=== PATIENT | female | born 1995 ===

== ENCOUNTER 2019-07-21 12:32 | Inpatient (IN) | payer MEDICAID ==
[2019-07-21] MEDS ORDERED: MINERAL OIL 30 ML ORAL LIQD PO PRN (14:48)
[2019-07-21] MEDS ORDERED: ePHEDrine SULFATE 50 MG/1 ML INJ IV PRN ×2 (14:48→20:36)
[2019-07-21] MEDS ORDERED: TERBUTALINE 1 MG/1 ML INJ IVP PRN (14:48)
[2019-07-21] MEDS ORDERED: LIDOCAINE (2%) 20 MG/1 ML VIAL 20 ML MDV INFILTRATI ONE ×2 (14:48→17:20)
[2019-07-21] MEDS ORDERED: fentaNYL 100 MCG/2 ML INJ IV PRN (14:48)
[2019-07-21] MEDS ORDERED: AMPICILLIN/NS 2 GM/100 ML 2 GM/100 ML BAG IV ONE (14:48)
[2019-07-21] MEDS ORDERED: TERBUTALINE 1 MG/1 ML INJ SUB-Q PRN (14:48)
[2019-07-21] MEDS ORDERED: OXYTOCIN 20 UNIT/1000ML DRIP 20 UNITS/1,000 ML BAG IV SCH (15:00)
[2019-07-21] MEDS ORDERED: OXYTOCIN DRIP 30 UNITS/500 ML BAG IV SCH ×3 (15:00→18:00)
[2019-07-21] MEDS ORDERED: LACTATED RINGERS 1,000 ML IV SCH ×2 (15:00→18:00)
[2019-07-21 15:38] LABS: Hemoglobin 9.3 gm/dl (10.1-14.3); Mean Corpuscular HGB Conc 31 % (30-34); Platelet Count 221 K/mm3 (140-440); Red Blood Count 4.46 M/mm3 (3.65-5.03); Red Cell Distribution Width 19.1 % (13.2-15.2)
[2019-07-21 15:49] LABS: Mean Corpuscular Volume 67 fl (79-97)
[2019-07-21] MEDS ORDERED: ONDANSETRON 4 MG/2 ML INJ IV PRN (17:20)
[2019-07-21] MEDS: BUTORPHANOL 2 MG/1 ML INJ IV PRN ×2 (17:22→19:31)
--- NOTE | 2019-07-21 17:26 | History and Physical Report ---
History of Present Illness Date of examination: 07/21/19 Date of admission: 07/21/19 15:21 Chief complaint: Intense Labor Pains History of present illness: Early entry to care, Co-managed with [facility] due to a Bicornuate uterus, LGA, Polyhyramnios, maternal obesity, and echogenic intracardiac focus. Past History Past Medical History: no pertinent history Past Surgical History: no surgical history Family/Genetic History: none Social history: no significant social history, single - Obstetrical History Expected Date of Delivery: 07/31/19 Actual Gestation: 38 Week(s) 4 Day(s) : 1 Medications and Allergies Allergies Allergy/AdvReac Type Severity Reaction Status Date / Time No Known Allergies Allergy Unverified 07/21/19 13:30 Home Medications Medication Instructions Recorded Confirmed Last Taken Type No Known Home Medications [No 07/21/19 07/21/19 Unknown History Reported Home Medications] Active Meds: Active Medications Butorphanol Tartrate (Stadol) 2 mg IV Q2H PRN PRN Reason: Pain , Severe (7-10) Ephedrine Sulfate (Ephedrine Sulfate) 10 mg IV Q2M PRN PRN Reason: Hypotension Fentanyl (Sublimaze) 100 mcg IV Q2H PRN PRN Reason: Pain,Severe (7-10) LABOR PAIN Oxytocin/Sodium Chloride (Pitocin/Ns 20 Unit/1000ml Drip) 20 units in 1,000 mls @ 125 mls/hr IV DIRECT ANDREA Oxytocin/Sodium Chloride (Pitocin/Ns 30 Unit/500ml) 30 units in 500 mls @ 1 mls/hr IV TITR ANDREA; Protocol Oxytocin/Sodium Chloride (Pitocin/Ns 30 Unit/500ml) 30 units in 500 mls @ 2 mls/hr IV TITR ANDREA; Protocol Stop: 07/21/19 23:59 Lactated Ringer's (Lactated Ringers) 1,000 mls @ 125 mls/hr IV DIRECT ANDREA Oxytocin/Sodium Chloride (Pitocin/Ns 30 Unit/500ml) 30 units in 500 mls @ 1 mls/hr IV TITR ANDREA; Protocol Lactated Ringer's (Lactated Ringers) 1,000 mls @ 125 mls/hr IV DIRECT ANDREA Lidocaine (Xylocaine 2%) 20 ml INFILTRATI ONCE ONE Stop: 07/21/19 17:21 Mineral Oil (Mineral Oil) 30 ml PO QHS PRN PRN Reason: Constipation Ondansetron HCl (Zofran) 4 mg IV Q8H PRN PRN Reason: Nausea And Vomiting Terbutaline Sulfate (Brethine) 0.25 mg SUB-Q ONCE PRN PRN Reason: Hyperstimulation/Hypertonicity Terbutaline Sulfate (Brethine) 0.25 mg IVP ONCE PRN PRN Reason: Hyperstimulation/Hypertonicity Review of Systems All systems: negative - Vital Signs Vital signs: Vital Signs Temp Pulse Resp BP 99.1 F 75 16 130/75 07/21/19 13:17 07/21/19 13:17 07/21/19 13:17 07/21/19 13:17 Temp Pulse Resp BP Pulse Ox 99.1 F 86 16 132/84 07/21/19 13:17 07/21/19 15:18 07/21/19 13:17 07/21/19 15:18 - Physical Exam Breasts: Positive: normal Cardiovascular: Regular rate Lungs: Positive: Clear to auscultation, Normal air movement Abdomen: Positive: normal appearance, soft, normal bowel sounds Genitourinary (Female): Positive: normal external genitalia, normal perenium Uterus: Positive: enlarged Extremities: Positive: edema (+1) - Obstetrical FHR: category 1 Uterine Contraction Monitor Mode: External Cervical Dilatation: 4 (SROM of a large amount of clear fluid at 1700) Cervical Effacement Percentage: 70 station: -2 Uterine Contraction Frequency (min): 1-2 Uterine Contraction Pattern: Regular Uterine Tone Measurement Phase: Resting Uterine Contraction Intensity: Moderate Results Result Diagrams: 07/21/19 14:25 Abnormal lab results 07/21/19 Range/Units 14:25 WBC 16.9 H (4.5-11.0) K/mm3 Hgb 9.3 L (10.1-14.3) gm/dl Hct 30.0 L (30.3-42.9) % MCV 67 L (79-97) fl MCH 21 L (28-32) pg RDW 19.1 H (13.2-15.2) % All other labs normal. Assessment and Plan A: IUP @ 38 4/7 Weeks Category I Tracing SROM GBS Positive P: Admit to L&D Per Routine Orders GBS Prophylaxis IV Pain Control Patient Care Transferred to Dr. Bolivar
[2019-07-21] MEDS ORDERED: fentaNYL-BUPIV 2 MCG/ML-0.125% 200 MCG/100 ML BAG EPIDURAL ONE (20:19)
[2019-07-21] MEDS ORDERED: DEXMEDETOMIDINE 200 MCG/2 ML VIAL IV ONE (20:19)
[2019-07-21] MEDS ORDERED: NALOXONE 2 MG/2 ML INJ IV PRN (20:36)
--- NOTE | 2019-07-21 20:37 | Anesthesia Consultation ---
Anesthesia Consult and Med Hx Date of service: 07/21/19 - Airway Anesthetic Teeth Evaluation: Good ROM Head & Neck: Adequate Mental/Hyoid Distance: Adequate Mallampati Class: Class II Intubation Access Assessment: Probably Good - Pulmonary Exam CTA: Yes - Cardiac Exam Cardiac Exam: RRR - Pre-Operative Health Status ASA Pre-Surgery Classification: ASA2 Proposed Anesthetic Plan: Epidural - Pulmonary Hx Asthma: No COPD: No Hx Pneumonia: No - Cardiovascular System Hx Hypertension: No - Central Nervous System Hx Seizures: No Hx Psychiatric Problems: No - Endocrine Hx Renal Disease: No Hx End Stage Renal Disease: No Hx Hypothyroidism: No Hx Hyperthyroidism: No - Hematic Hx Anemia: No Hx Sickle Cell Disease: No - Other Systems Hx Alcohol Use: No
--- NOTE | 2019-07-21 20:38 | Progress Note ---
Labor Epidural - Labor Epidural Start Time: 20:22 Stop Time: 20:30 Performed by:: PAYTON PINEDA Procedure: Patient is requesting epidural for labor pain. H&P, and labs reviewed. Procedure explained, questions answered, consent obtained. Patient in sitting position with blood pressure cuff and pulse ox on and working. Timeout performed immediately before start of procedure. Sterile betadine prep/drape. 3 mL 1% lidocaine skin wheal at L[3]-L[4]. 18-gauge Touhy epidural needle advanced to [id number] with saline at [7] cm. 27-gauge spinal needle advanced until clear, free-flowing CSF. Intrathecal dexmedetomidine [10] mcg administered and needle removed. Epidural catheter advanced to [12] cm, negative aspiration for blood and csf, negative test dose 3 ml 1.5% lidocaine with epinephrine. Sterile steri-strips and tegaderm applied, followed by tape reinforcement. Patient tolerated procedure well.
[2019-07-21] MEDS ORDERED: fentaNYL-BUPIV 2 MCG/ML-0.125% 200 MCG/100 ML BAG EPIDURAL SCH (21:00)
[2019-07-21] MEDS: AMPICILLIN/NS 1 GM/50 ML 1 GM/50 ML BAG IV SCH (21:04)
[2019-07-22] MEDS: AMPICILLIN/NS 1 GM/50 ML 1 GM/50 ML BAG IV SCH (00:58)
[2019-07-22] MEDS: OXYTOCIN 20 UNIT/1000ML DRIP 20 UNITS/1,000 ML BAG IV SCH ×2 (04:35→06:29)
[2019-07-22] MEDS ORDERED: oxyCODONE /ACETAMINOPHEN 5-325MG TAB PO PRN (04:53)
[2019-07-22] MEDS ORDERED: WITCH HAZEL/ GLYCERIN PAD TP PRN (04:53)
[2019-07-22] MEDS ORDERED: PROMETHAZINE 25 MG RECT SUPP PR PRN (04:53)
[2019-07-22] MEDS ORDERED: ACETAMINOPHEN 325 MG TAB PO PRN (04:53)
[2019-07-22] MEDS ORDERED: ONDANSETRON 4 MG/2 ML INJ IV PRN (04:53)
[2019-07-22] MEDS ORDERED: PROMETHAZINE 25 MG TAB PO PRN (04:53)
[2019-07-22] MEDS ORDERED: MAGNESIUM HYDROXIDE (MOM) ORAL LIQD UDC PO PRN (04:53)
[2019-07-22] MEDS ORDERED: BENZOCAINE/MENTHOL 20/0.5% TOP SPRAY 56 GM TP PRN (04:53)
[2019-07-22] MEDS ORDERED: diphenhydrAMINE 25 MG CAP PO PRN (04:53)
[2019-07-22] MEDS ORDERED: LANOLIN/ZINC/DIMETHICONE (LANSINOH) 7 GM TP PRN ×2 (04:53)
--- NOTE | 2019-07-22 05:00 | Procedure Note ---
OB Delivery Note - Delivery Date of Delivery: 07/22/19 Surgeon: BALBIR BONE Estimated blood loss: 300cc - Vaginal Delivery presentation: vertex Delivery position: OA Intrapartum events: febrile- temp >100.3, meconium Delivery augmentation: rupture of membranes, pitocin Delivery monitor: external FHT Route of delivery: Delivery placenta: spontaneous Delivery cord: 3 umbilical vessels Episiotomy: none Delivery laceration: 2nd degree Delivery repair: vicryl, other (2-0) Anesthesia: epidural Delivery comments: Anterior shoulder delivered without difficulty. Cord clamped and cut. Baby to the warmer. Placenta delivered spontaneously and was delivered in its entirety. Second-degree laceration repaired with 2-0 Vicryl. Good hemostasis throughout. Mother and baby stable. - Infant A at 1 minute: 7 at 5 minutes: 9 Infant Gender: Female
[2019-07-22] MEDS: SENNOSIDES/DOCUSATE SODIUM 8.6/50 MG TAB PO SCH ×2 (06:27→19:33)
[2019-07-22] MEDS: IBUPROFEN 600 MG TAB PO SCH ×4 (06:27→23:00)
[2019-07-22 17:41] LABS: Hematocrit 28.1 % (30.3-42.9); Hemoglobin 8.7 gm/dl (10.1-14.3)
--- NOTE | 2019-07-22 21:14 | Post Anesthesia Evaluation ---
- Post Anesthesia Evaluation Patient Participated: Yes Airway Patent: Yes Stable Respiratory Function: Yes Nausea/Vomiting: No Temp > 96.8F: Yes Pain Manageable: Yes Adequeate Hydration: Yes Anesthesia Complications: No Block Receding Appropriately: Yes
[2019-07-23] MEDS: IBUPROFEN 600 MG TAB PO SCH ×4 (05:12→23:23)
[2019-07-23] MEDS ORDERED: DIPHtheria,PERTUSSIS(ACELL),TETANUS VACCINE/PF 0.5 ML VIAL IM ONE (06:00)
--- NOTE | 2019-07-23 11:18 | Progress Note ---
Assessment and Plan A: PP Day #1 Asymptomatic Anemia P: Follow Routine Orders Continue PP FeSO4 Infed 100mg IM x 1 dose D/C home today per patient request RTO in 6 Weeks Subjective - Subjective Date of service: 07/23/19 Interval history: Early entry to care, Co-managed with [facility] due to a Bicornuate uterus, LGA, Polyhyramnios, maternal obesity, and echogenic intracardiac focus. Patient reports: appetite normal, voiding normally, pain well controlled, flatus, ambulating normally, other (denies dizziness, HAs, fatigue) : doing well, bottle feeding (and ) Objective - Vital Signs Latest vital signs: Vital Signs Temp Pulse Resp BP Pulse Ox 07/23/19 08:23 97.6 F 73 18 98/55 98 07/23/19 00:22 98.1 F 94 H 18 102/56 97 07/22/19 16:09 97.9 F 105 H 18 109/58 98 07/22/19 12:36 98.6 F 96 H 18 118/55 94 Intake and Output 07/22/19 07/23/19 07/23/19 22:59 06:59 14:59 Intake Total 840 240 240 Output Total 650 200 Balance 190 40 240 Intake: Oral 360 Intake, Free Water 480 240 240 Output: Urine 650 200 Void 650 200 Other: Total, Intake Amount 360 Total, Output Amount 300 200 # Voids Void 1 2 1 - Exam Breasts: Present: normal Cardiovascular: Present: Regular rate Lungs: Present: Clear to auscultation, Normal air movement Abdomen: Present: normal appearance, soft, normal bowel sounds Uterus: Present: normal, firm, fundal height below umbilicus Extremities: Present: normal - Labs Labs: Abnormal lab results 07/22/19 Range/Units 16:46 Hgb 8.7 L (10.1-14.3) gm/dl Hct 28.1 L (30.3-42.9) %
[2019-07-23] MEDS ORDERED: IRON DEXTRAN COMPLEX 100 MG/2 ML INJ IM ONE (12:00)
[2019-07-23] MEDS: SENNOSIDES/DOCUSATE SODIUM 8.6/50 MG TAB PO SCH (17:31)
--- NOTE | 2019-07-23 23:49 | Discharge Summary ---
Providers - Providers Date of Admission: 07/21/19 15:21 Date of discharge: 07/24/19 Attending physician: BALBIR BONE Primary care physician: SYSTEMS MANAGER Hospitalization Reason for admission: rupture of membranes Delivery: Episiotomy: none Laceration: 2nd degree Other procedures: none complications: none Discharge diagnosis: IUP at term delivered baby: female Condition at discharge: Good Disposition: DC-01 TO HOME OR SELFCARE Plan - Provider Discharge Summary Activity: routine, no sex for 6 weeks, no heavy lifting 4 weeks, no strenuous exercise Diet: routine Instructions: routine Additional instructions: [] Smoking cessation referral if applicable(refer to patient education folder for contact #) [] Refer to [facility]'s [facility] Booklet Call your doctor immediately for: * Fever > 100.5 * Heavy vaginal bleeding ( >1 pad per hour) * Severe persistent headache * Shortness of breath * Reddened, hot, painful area to leg or breast * Drainage or odor from incision. * Keep incision clean and dry at all times and follow doctor's instructions regarding bathing/showering - Follow up plan Follow up: PRIMARY CARE, [Primary Care Provider] - 6 Weeks
[2019-07-24] MEDS: IBUPROFEN 600 MG TAB PO SCH (05:32)
[2019-07-24] MEDS: SENNOSIDES/DOCUSATE SODIUM 8.6/50 MG TAB PO SCH (05:32)
[2019-07-24 11:02] VITALS: BP 131/85
== END 2019-07-24 14:30 | disposition home or self-care (01) | DRG 775 ==
LOC: TRG 12:32 → APU 13:19 → TRG 15:18 → LD 15:21 → OB 07-22 08:37
PROVIDERS: ADMIT Obstetrics & Gynecology; ATTEND Obstetrics & Gynecology
PROC: 10E0XZZ Delivery of Products of Conception, External Approach (ICD-10-PCS; principal; 2019-07-22)
PROC: 0KQM0ZZ Repair Perineum Muscle, Open Approach (ICD-10-PCS; 2019-07-22)
PROC: 3E0R3BZ Introduction of Anesthetic Agent into Spinal Canal, Percutaneous Approach (ICD-10-PCS; 2019-07-22)
PROC: 3E0R33Z Introduction of Anti-inflammatory into Spinal Canal, Percutaneous Approach (ICD-10-PCS; 2019-07-22)
DX: O99.824 Streptococcus B carrier state complicating childbirth (principal); O70.1 Second degree perineal laceration during delivery; Z37.0 Single live birth; Z3A.38 38 weeks gestation of pregnancy
CPT/HCPCS: 36415; 85014; 85018; 85027; 86592; 86850; 86900; 86901; 90471; 90715; G0378; J0290; J0595; J1750; J2590; J3490; J7120